=== PATIENT | male | born 1995 | race Caucasian/White ===

== ENCOUNTER 2020-10-08 16:27 | Emergency (ER) | payer SELFPAY ==
[~2020-10-08] VITALS: Ht 172 cm; Wt 125.0 kg
[~2020-10-08 16:27] MED LIST: METH4TAB PO
[2020-10-08] MEDS ORDERED: LACTATED RINGERS 1,000 ML IV ONE (16:45)
--- NOTE | 2020-10-08 16:47 | ED Cough/URI ---
General Chief Complaint: Respiratory Problems Stated Complaint: COUGH, SOB Nursing Triage Note: PT TO [facility] WITH CC OF BEING SOB AFTER WALKING A COUPLE MILES, HAS FELT SICK FOR ABOUT A WK WITH SORE THROAT AND HEADACHE OFF AND ON. HAS PASSED OUT ONCE EACH DAY FOR THE LAST 3 . Source: patient Exam Limitations: no limitations History of Present Illness Date Seen by Provider: Oct 08, 2020 Time Seen by Provider: 16:27 Initial Comments Patient to the ER by EMS with chief complaint is had about a week of cough dizziness malaise tiredness nonproductive. He has a history of asthma when he was a kid but has not been on medicines or follow-up with a doctor for many years. He was walking to the ER to be checked out in the heat and decided he was too short of breath so he called 911 for an ambulance for the rest of the way. He is not on any medications now. No fevers or chills. No nausea vomiting diarrhea constipation Allergies and Home Medications Allergies Coded Allergies: No Known Drug Allergies (Unverified Allergy, Mild, 09/21/08) Home Medications Benzonatate 100 Mg Capsule, 100 MG PO Q6H PRN for COUGH Prescribed by: NARAYAN RAMIREZ on 10/08/20 1805 Methylprednisolone 4 Mg/Dose-Pack Tab.ds.pk, 0 PO UD as per instructions Prescribed by: VALENTIN MITCHELL on 09/21/08 1604 Patient Home Medication List Home Medication List Reviewed: Yes Review of Systems Review of Systems Constitutional: No chills, No fever; malaise EENTM: No ear discharge, No ear pain Respiratory: cough; No phlegm; short of breath Cardiovascular: No chest pain, No palpitations Gastrointestinal: No abdominal pain, No nausea Genitourinary: No discharge, No dysuria Musculoskeletal: No back pain, No joint pain All Other Systems Reviewed Negative Unless Noted: Yes Past Sjkgwnk-Szyptd-Lwcefe Hx Patient Social History Tobacco Use?: Yes Tobacco type used: Cigarettes Smoking Status: Current Everyday Smoker Use of E-Cig and/or Vaping dev: No Substance use?: No Alcohol Use?: No Physical Exam Vital Signs - First Documented 10/08/20 16:35 Temp 36.7 Pulse 119 Resp 20 B/P (MAP) 137/85 (102) Pulse Ox 96 O2 Delivery Room Air Capillary Refill : Less Than 3 Seconds Height: '" Weight: lbs. oz. kg; 42.00 BMI Method: General Appearance: WD/WN, no apparent distress Eyes: Bilateral Eye Normal Inspection, Bilateral Eye PERRL, Bilateral Eye EOMI HEENT: PERRL/EOMI, TMs normal, pharynx normal Neck: non-tender, full range of motion, supple, normal inspection Respiratory: lungs clear, normal breath sounds, no respiratory distress, no accessory muscle use Cardiovascular: normal peripheral pulses, regular rate, rhythm Extremities: non-tender, normal inspection, normal capillary refill Neurologic/Psychiatric: alert, normal mood/affect, oriented x 3 Progress/Results/Core Measures Suspected Sepsis SIRS Temperature: Pulse: 119 Respiratory Rate: 20 Laboratory Tests 10/08/20 16:45: White Blood Count 11.8H Blood Pressure 137 /85 Mean: 102 Laboratory Tests 10/08/20 16:45: Creatinine 0.71, Platelet Count 393, Total Bilirubin 0.6 Results/Orders Lab Results Laboratory Tests Test 10/08/20 16:37 10/08/20 16:45 Range/Units Influenza Type A (RT-PCR) Not Detected Not Detecte Influenza Type B (RT-PCR) Not Detected Not Detecte SARS-CoV-2 RNA (RT-PCR) Not Detected Not Detecte White Blood Count 11.8 H 4.3-11.0 10^3/uL Red Blood Count 5.42 4.30-5.52 10^6/uL Hemoglobin 16.9 13.3-17.7 g/dL Hematocrit 49 40-54 % Mean Corpuscular Volume 90 80-99 fL Mean Corpuscular Hemoglobin 31 25-34 pg Mean Corpuscular Hemoglobin Concent 35 32-36 g/dL Red Cell Distribution Width 11.9 10.0-14.5 % Platelet Count 393 130-400 10^3/uL Mean Platelet Volume 11.1 9.0-12.2 fL Immature Granulocyte % (Auto) 0 % Neutrophils (%) (Auto) 69 42-75 % Lymphocytes (%) (Auto) 19 12-44 % Monocytes (%) (Auto) 9 0-12 % Eosinophils (%) (Auto) 2 0-10 % Basophils (%) (Auto) 1 0-10 % Neutrophils # (Auto) 8.1 H 1.8-7.8 10^3/uL Lymphocytes # (Auto) 2.2 1.0-4.0 10^3/uL Monocytes # (Auto) 1.1 H 0.0-1.0 10^3/uL Eosinophils # (Auto) 0.3 0.0-0.3 10^3/uL Basophils # (Auto) 0.1 0.0-0.1 10^3/uL Immature Granulocyte # (Auto) 0.0 0.0-0.1 10^3/uL Sodium Level 141 135-145 MMOL/L Potassium Level 4.0 3.6-5.0 MMOL/L Chloride Level 104 98-107 MMOL/L Carbon Dioxide Level 24 21-32 MMOL/L Anion Gap 13 5-14 MMOL/L Blood Urea Nitrogen 12 7-18 MG/DL Creatinine 0.71 0.60-1.30 MG/DL Estimat Glomerular Filtration Rate > 60 BUN/Creatinine Ratio 17 Glucose Level 103 70-105 MG/DL Calcium Level 10.0 8.5-10.1 MG/DL Corrected Calcium 9.8 8.5-10.1 MG/DL Total Bilirubin 0.6 0.1-1.0 MG/DL Aspartate Amino Transf (AST/SGOT) 24 5-34 U/L Alanine Aminotransferase (ALT/SGPT) 53 0-55 U/L Alkaline Phosphatase 61 40-136 U/L C-Reactive Protein High Sensitivity 2.67 H 0.00-0.50 MG/DL Total Protein 7.5 6.4-8.2 GM/DL Albumin 4.3 3.2-4.5 GM/DL My Orders Orders - NARAYAN RAMIREZ Cbc With Automated Diff (10/08/20 16:42) Comprehensive Metabolic Panel (10/08/20 16:42) Hs C Reactive Protein (10/08/20 16:42) Ed Iv/Invasive Line Start (10/08/20 16:42) Lactated Ringers (Lr 1000 Ml Iv Solution (10/08/20 16:45) Covid 19 Inhouse Test (10/08/20 16:42) Influenza A And B By Pcr (10/08/20 16:42) Medications Given in ED Current Medications Medications Dose Ordered Sig/Jun Route Start Time Stop Time Status Last Admin Dose Admin Lactated Ringer's 1,000 ml @ 0 mls/hr Q0M ONCE IV 10/08/20 16:45 10/08/20 16:47 DC 10/08/20 16:53 1,000 MLS/HR Vital Signs/I&O 10/08/20 10/08/20 16:35 18:09 Temp 36.7 36.7 Pulse 119 114 Resp 20 20 B/P (MAP) 137/85 (102) 143/93 (102) Pulse Ox 96 96 O2 Delivery Room Air Room Air Capillary Refill : Less Than 3 Seconds Blood Pressure Mean: 102 Progress Note : Time: 16:47 Progress Note Minimally dry on examination. Lung sounds clear vital signs are okay except for a mild tachycardia. We will give him a liter of fluids check some basic labs. Covid swab. Departure Impression Primary Impression: Bronchitis Disposition: 01 HOME, SELF-CARE Condition: Stable Departure-Patient Inst. Decision time for Depature: 18:03 Referrals: NO,LOCAL PHYSICIAN (PCP/Family) Primary Care Physician Patient Instructions: Acute Bronchitis, Adult (DC) Add. Discharge Instructions: Tessalon Perles 1 capsule every 6 hours as necessary for cough. All discharge instructions reviewed with patient and/or family. Voiced understanding. Scripts Benzonatate (Tessalon Perle) 100 Mg Capsule 100 MG PO Q6H PRN for COUGH, #20 CAP 0 Refills Prov: NARAYAN RAMIREZ 10/08/20 NARAYAN RAMIREZ Oct 08, 2020 16:47
[2020-10-08 17:00] LABS: BASOPHILS # (AUTO) 0.1 10^3/uL (0.0-0.1); BASOPHILS % (AUTO) 1 % (0-10); EOSINOPHILS # (AUTO) 0.3 10^3/uL (0.0-0.3); EOSINOPHILS % (AUTO) 2 % (0-10); HEMATOCRIT 49 % (40-54); HEMOGLOBIN 16.9 g/dL (13.3-17.7); LYMPHOCYTES # (AUTO) 2.2 10^3/uL (1.0-4.0); LYMPHOCYTES % (AUTO) 19 % (12-44); MEAN CORPUSCULAR HEMOGLOBIN 31 pg (25-34); MEAN CORPUSCULAR HGB CONC 35 g/dL (32-36); MEAN CORPUSCULAR VOLUME 90 fL (80-99); MEAN PLATELET VOLUME 11.1 fL (9.0-12.2); MONOCYTES # (AUTO) 1.1 10^3/uL (0.0-1.0); MONOCYTES % (AUTO) 9 % (0-12); NEUTROPHILS # (AUTO) 8.1 10^3/uL (1.8-7.8); NEUTROPHILS % (AUTO) 69 % (42-75); PLATELET COUNT 393 10^3/uL (130-400); WHITE BLOOD COUNT 11.8 10^3/uL (4.3-11.0)
[2020-10-08 17:10] LABS: ALBUMIN 4.3 GM/DL (3.2-4.5)
[2020-10-08 17:11] LABS: CHLORIDE 104 MMOL/L (98-107); SODIUM 141 MMOL/L (135-145)
[2020-10-08 17:13] LABS: GLUCOSE 103 MG/DL (70-105); TOTAL PROTEIN 7.5 GM/DL (6.4-8.2)
[2020-10-08 17:14] LABS: CARBON DIOXIDE 24 MMOL/L (21-32)
[2020-10-08 17:15] LABS: BILIRUBIN,TOTAL 0.6 MG/DL (0.1-1.0)
[2020-10-08 17:16] LABS: ALKALINE PHOSPHATASE 61 U/L (40-136)
[2020-10-08 17:17] LABS: CREATININE SERUM 0.71 MG/DL (0.60-1.30); GFR ESTIMATED > 60
[2020-10-08 17:18] LABS: BUN/CREATININE RATIO 17
[2020-10-08 17:20] LABS: ALANINE AMINOTRANSFERASE 53 U/L (0-55)
[2020-10-08] MEDS ORDERED: BENZ-13 PO (18:05)
[2020-10-08 18:09] VITALS: BP 143/93
== END 2020-10-08 18:08 | disposition home or self-care (01) ==
LOC: EDUNIT# 16:27 → ER 16:29
DX: J40 Bronchitis, not specified as acute or chronic (principal); F17.210 Nicotine dependence, cigarettes, uncomplicated; Z20.822 Contact with and (suspected) exposure to COVID-19; Z79.52 Long term (current) use of systemic steroids
CPT/HCPCS: 36415; 80053; 85025; 86141; 87636